=== PATIENT | female | born 1995 | race Caucasian/White ===

== ENCOUNTER 2018-07-01 09:33 | Emergency (ER) | payer OTHER, MEDICAID ==
[~2018-07-01] VITALS: Ht 165.1 cm; Wt 72.0 kg
[2018-07-01 09:40] VITALS: BP 103/39
[2018-07-01 10:40] LABS: BASOPHILS # (AUTO) 0.03 x10^3/uL (0-0.1); BASOPHILS % (AUTO) 0 % (0-1); EOSINOPHILS # (AUTO) 0.11 x10^3/uL (0-0.4); EOSINOPHILS % (AUTO) 1 % (1-7); LYMPHOCYTES # (AUTO) 2.67 x10^3/uL (1-3.4); LYMPHOCYTES % (AUTO) 34 % (22-44); MD NO; MEAN CORPUSCULAR HEMOGLOBIN 30.3 pg (27.0-34.8); MEAN CORPUSCULAR HGB CONC 34.1 g/dL (32.4-35.8); MEAN PLATELET VOLUME 8.5 fL (7.4-10.4); MONOCYTES # (AUTO) 0.66 x10^3/uL (0.2-0.8); MONOCYTES % (AUTO) 8 % (2-9); NEUTROPHILS # (AUTO) 4.36 x10^3/uL (1.8-6.8); NEUTROPHILS % (AUTO) 56 % (42-75); PLATELET COUNT 263 x10^3/uL (130-400); RED BLOOD COUNT 4.71 x10^6/uL (3.82-5.3); RED CELL DISTRIBUTION WIDTH 14.1 % (9.6-15.2)
[2018-07-01 10:41] LABS: CULTURE INDICATED? NO; MICROSCOPIC NOT IND
[2018-07-01 10:50] LABS: ALBUMIN 3.6 g/dL (3.4-5.0); ANION GAP 6 mmol/L (5-15); CALCIUM 8.3 mg/dL (8.5-10.1); CHLORIDE 110 mmol/L (98-107)
[2018-07-01 10:55] LABS: ALANINE AMINOTRANSFERASE 19 U/L (12-78); ALKALINE PHOSPHATASE 91 U/L (45-117); BILIRUBIN,TOTAL 0.4 mg/dL (0.2-1.0); CREATININE 0.78 mg/dL (0.55-1.02); TOTAL PROTEIN 6.9 g/dL (6.4-8.2)
== END 2018-07-01 12:52 | disposition home or self-care (01) ==
LOC: ED 11:12
DX: R10.31 Right lower quadrant pain (principal); R10.2 Pelvic and perineal pain; R11.0 Nausea
CPT/HCPCS: 36415; 76830; 80053; 81003; 84703; 85025; 99285

== ENCOUNTER 2020-10-15 15:13 | Emergency (ER) | payer MEDICAID, OTHER ==
[~2020-10-15] VITALS: Ht 165.1 cm; Wt 105.0 kg
[2020-10-15 15:16] VITALS: BP 118/65
--- NOTE | 2020-10-15 15:48 | NUR ---
RIGHT HAND PAIN AFTER PUNCHING A WINDOW.
--- NOTE | 2020-10-15 15:56 | NUR ---
ICE APPLIED. RIGHT WRIST ELEVATED ON TOWELS.
--- NOTE | 2020-10-15 16:17 | NUR ---
PT DC HOME IN A STABLE CONDITION. DC INSTRUCTIONS WERE DISCUSSED WITH PT. PT VERBALIZED UNDERSTANDING. NO FURTHER QUESTIONS OR CONCERNS EXPRESSED AT THAT TIME. PT AMBULATED TO DC DESK WITH S.O. WITH A STEADY GAIT.
== END 2020-10-15 16:20 | disposition home or self-care (01) ==
LOC: ED 15:30
DX: S60.211A Contusion of right wrist, initial encounter (principal); S60.221A Contusion of right hand, initial encounter; W22.8XXA Striking against or struck by other objects, initial encounter; Y93.89 Activity, other specified; Y92.009 Unspecified place in unspecified non-institutional (private) residence as the place of occurrence of the external cause; Y99.8 Other external cause status
CPT/HCPCS: 99284

== ENCOUNTER 2021-04-25 11:53 | Emergency (ER) | payer MEDICAID ==
[~2021-04-25] VITALS: Ht 165.1 cm; Wt 92.9 kg
[2021-04-25 12:03] VITALS: BP 109/59
[2021-04-25] MEDS ORDERED: KETOROLAC 30 MG/1 ML IM ONE (13:00)
[2021-04-25] MEDS ORDERED: ACETAMINOPHEN 500 MG TABLET PO ONE (13:00)
[2021-04-25] MEDS ORDERED: ACETAMINOPHEN 500 MG TABLET ONE (13:06)
[2021-04-25] MEDS ORDERED: KETOROLAC 60 MG/2 ML ONE (13:06)
== END 2021-04-25 13:24 | disposition home or self-care (01) ==
LOC: ED 13:15
DX: M72.2 Plantar fascial fibromatosis (principal)
CPT/HCPCS: 96372; 99283; J1885